=== PATIENT | male | born 2005 | race Caucasian/White ===

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

== ENCOUNTER 2024-04-07 15:44 | Outpatient (CLI) | payer BC, SELFPAY | END 2024-04-07 23:59 | disposition home or self-care (01) | LOC: LAB.DROPOF 15:45 | PROVIDERS: PCP Nurse Practitioner; Visit Provider Nurse Practitioner | DX: H92.13 Otorrhea, bilateral (principal) | CPT/HCPCS: 87070 ==